=== PATIENT | male | born 1985 | race Caucasian/White ===

== ENCOUNTER 2019-10-24 01:49 | Observation (INO) ==
[2019-10-24 02:48] LABS: Basophils # (auto) 0.02 K/uL (0-0.2); Basophils % (auto) 0.3 %; Eosinophils # (auto) 0.24 K/uL (0-0.5); Eosinophils % (auto) 3.4 %; Hematocrit (blood only) 40.1 % (42-52); Hemoglobin 13.4 g/dL (14.0-18.0); Immature Granulocytes # (auto) 0.01 K/uL (0.00-0.02); Immature Granulocytes % (auto) 0.1 %; Lymphocytes # (auto) 1.36 K/uL (1.2-3.4); Lymphocytes % (auto) 19.4 %; Mean Corpuscular Hemoglobin 31.1 pg (25-34); Mean Corpuscular Hgb Conc 33.4 g/dL (32-36); Mean Platelet Volume 9.9 fL (7.4-10.4); Monocytes # (auto) 0.66 K/uL (0.11-0.59); Monocytes % (auto) 9.4 %; Neutrophils # (auto) 4.73 K/uL (1.4-6.5); Neutrophils % (auto) 67.4 %; Platelet Count 198 K/uL (130-400); RDW Coefficient of Variation 12.9 % (11.5-14.5); RDW Standard Deviation 44.2 fL (36.4-46.3); Red Blood Count 4.31 M/uL (4.7-6.1); White Blood Count 7.02 K/uL (4.8-10.8)
[2019-10-24 03:05] LABS: Albumin Level 3.9 gm/dl (3.4-5.0); BUN Creatinine Ratio 9.8 (10-20); Calcium 8.9 mg/dl (8.5-10.1); Creatinine Clr Calc Pharmacy 150.9 ml/min; Est GFR (African American) 109.3; Est GFR (Non-African American) 94.3
[2019-10-24 03:08] LABS: Bilirubin,Total 0.2 mg/dl (0.2-1); Globulin 3.8 gm/dl (2.5-4.0); Total Protein 7.7 gm/dl (6.4-8.2)
[2019-10-24] MEDS ORDERED: VANCOMYCIN CONSULT ACTIVE PRN ×2 (03:25→04:49)
[2019-10-24] MEDS ORDERED: VANCOMYCIN HCL 2,500 MG in SODIUM CHLORIDE 0.9% 500 ML IV ONE (03:25)
[2019-10-24] MEDS ORDERED: KETOROLAC 30 MG/ML VIAL IV ONE (03:35)
--- NOTE | 2019-10-24 04:35 | Emergency Department Note ---
Impression & Plan Cellulitis, Abscess of skin ED Provider Note NAME: OSVALDO FRANCIS AGE: 34 SEX: M ARRIVES VIA: Walk-In INFORMANT: Patient ED PROVIDER(S): Nathaly Pepper DO CHIEF COMPLAINT: Skin infection PLAN: [facility]: Stable MEDICAL DECISION MAKING: This is a 34-year-old male patient presents to the emergency department with a worsening skin infection. The patient has a negative lactate and no evidence of leukocytosis. The patient was afebrile. However, the patient is failing outpatient oral antibiotics and has a skin abscess with spreading cellulitis. The patient was started on IV vancomycin and the [facility] T[facility] Nursing notes reviewed and agree them. Prior medical records reviewed Vital Signs: reviewed and remarkable for hypertension Differential diagnosis: Skin abscess, cellulitis, sepsis, bacteremia ER treatment provided: IV Toradol IV vancomycin Laboratory studies: See below Consultation(s): None HPI: 34/M arrives for evaluation of right lower extremity skin abscess. This is a 34-year-old male patient who has been taking Bactrim and Keflex over the past 36 hours as prescribed by the PCP for what appeared to be an infected scratch. Unfortunately, there is significant erythema that has spread out from the circumscribed area with an ink pen. The area is warm to touch. The patient has no obvious edema to that right lower extremity. ROS: See above HPI for pertinent positives & negatives. A total of 10 systems reviewed and were otherwise negative. PAST MEDICAL HISTORY:See Below FAMILY HISTORY:See Below SOCIAL HISTORY:See Below HOME MEDICATIONS:See list ALLERGIES:See list VITALS:See Below PHYSICAL EXAMINATION: HEENT: Head - normocephalic and atraumatic Pupils are equal, round, and reactive to light. Extraocular eye muscles are intact, and sclera are anicteric. Nose - moist nasal mucosa without discharge. Mouth - moist buccal mucosa. Oropharynx is nonerythematous and there is no tonsillar exudate or edema noted. Neck: Supple; no JVD, nuchal rigidity, cervical lymphadenopathy Heart: Regular rate and rhythm. There is a normal S1 and S2 with no murmurs, clicks, or gallops appreciated. Lungs: Clear to auscultation bilaterally with no wheezes, rales, or rhonchi. Abdomen: Soft, completely nontender, nondistended, with good bowel sounds. There are no palpable pulsatile masses or hepatosplenomegaly. There is no guarding, rigidity, or rebound noted. Extremities: Right leg: There is an area of skin abscess just proximal to the knee but does not seem to be fluctuant. There is expanding erythema surrounding this wound that spreads proximal almost to the groin. The patient had used an ink pen to [place] the area of erythema on Friday and this has spread far outside of that area of demarcation. Skin: warm and dry with good turgor and no rashes. ED COURSE: Times/Reassessments: 0200: The patient was evaluated in room C 11. A complete history and physical was performed. Laboratory studies were drawn as above including a lactate and blood cultures. I did contact the lab to see if I could get any further identification of the staph species or sensitivities. This was not available. An IV lock was initiated and labs were drawn as above. I reviewed the results of the laboratory studies with the patient. The patient was started on IV vancomycin. I discussed the case with the [facility] hospitalist and they will evaluate for further inpatient management. Nathaly Pepper DO Past Med/Surg History Medical History (Updated 10/24/19 @ 07:07 by Nathaly Pepper DO) Depression Hypertension Family History Mother Hypertension Social History Smoking Status: Never smoker Hx Alcohol Use: Yes Alcohol type: beer, wine and hard liquor Hx Substance Use: No Preferred Language: Kinyarwanda Communication Ability: Effective Relationship Counselor Required: No Beliefs That Will Affect Care: None marital status: Current Living Situation: Family current occupational status: employed and unemployed Other Information That Helps Us Care for You: No Feels Safe at Home: Yes Safety Concerns: Feels Safe At This Time Allergies Allergies Allergy/AdvReac Type Severity Reaction Status Date / Time codeine AdvReac Mild NAUSEA/VOMI Unverified 10/24/19 02:33 TING Home Meds Home Medications Medication Instructions Recorded Confirmed lisinopril 10 mg tablet 10 mg PO DAILY 11/17/18 10/24/19 venlafaxine 150 mg 150 mg PO DAILY 11/17/18 10/24/19 capsule,extended release 24 hr amitriptyline 10 mg tablet 10 mg PO DAILY 02/01/19 10/24/19 cephalexin 500 mg PO QID 10/24/19 10/24/19 sulfamethoxazole-trimethoprim 1 tab PO Q12 10/24/19 10/24/19 Results & Data (ED) Vital Signs Vital Signs - 24 hr 10/24/19 01:53 10/24/19 02:19 10/24/19 02:32 Temperature 37.3 C Temperature Source Oral Pulse Rate 85 81 Respiratory Rate 16 23 Respiratory Depth Normal Blood Pressure 172/94 H 143/79 H Blood Pressure Mean 120 91 Blood Pressure Position Sitting Pulse Oximetry 100 Oxygen Delivery Method Room Air Room Air Sepsis Recent Fever Within 48 Hours No Sepsis New/Unexplained Change in Mental Status No Sepsis Action Taken by Nursing No Action Required 10/24/19 02:35 10/24/19 03:00 10/24/19 03:30 Temperature Temperature Source Pulse Rate 80 87 73 Respiratory Rate 26 H 23 21 Respiratory Depth Blood Pressure 158/98 H Blood Pressure Mean 113 Blood Pressure Position Pulse Oximetry Oxygen Delivery Method Sepsis Recent Fever Within 48 Hours Sepsis New/Unexplained Change in Mental Status Sepsis Action Taken by Nursing 10/24/19 04:00 10/24/19 05:34 Temperature Temperature Source Pulse Rate 66 68 Respiratory Rate 17 18 Respiratory Depth Blood Pressure 154/81 H 140/77 Blood Pressure Mean 97 Blood Pressure Position Pulse Oximetry 98 Oxygen Delivery Method Room Air Sepsis Recent Fever Within 48 Hours Sepsis New/Unexplained Change in Mental Status Sepsis Action Taken by Nursing Laboratory Data Result diagrams: 10/24/19 02:30 10/24/19 02:30 Lab Results 10/24/19 10/24/19 10/24/19 Range/Units 02:30 02:30 02:30 WBC 7.02 (4.8-10.8) K/uL RBC 4.31 L (4.7-6.1) M/uL Hgb 13.4 L (14.0-18.0) g/dL Hct 40.1 L (42-52) % MCV 93.0 (80-100) fL MCH 31.1 (25-34) pg MCHC 33.4 (32-36) g/dL RDW Std Deviation 44.2 (36.4-46.3) fL RDW Coeff of Eliza 12.9 (11.5-14.5) % Plt Count 198 (130-400) K/uL MPV 9.9 (7.4-10.4) fL Immature Gran % (Auto) 0.1 % Neut % (Auto) 67.4 % Lymph % (Auto) 19.4 % [place] % (Auto) 9.4 % Eos % (Auto) 3.4 % Baso % (Auto) 0.3 % Neut # (Auto) 4.73 (1.4-6.5) K/uL Lymph # (Auto) 1.36 (1.2-3.4) K/uL [place] # (Auto) 0.66 H (0.11-0.59) K/uL Eos # (Auto) 0.24 (0-0.5) K/uL Baso # (Auto) 0.02 (0-0.2) K/uL Immature Gran # (Auto) 0.01 (0.00-0.02) K/uL Absolute Nucleated RBC 0.00 (0-0) K/uL Nucleated RBC % (auto) 0.0 % Sodium 139 (136-145) mmol/L Potassium 4.0 (3.5-5.1) mmol/L Chloride 107 (98-107) mmol/L Carbon Dioxide 27 (21-32) mmol/L Anion Gap 5.0 (3-11) BUN 10 (7-18) mg/dl Creatinine 1.03 (0.6-1.4) mg/dl Est Cr Clr Drug Dosing 150.9 ml/min Est GFR ( Amer) 109.3 Est GFR (Non-Af Amer) 94.3 BUN/Creatinine Ratio 9.8 L (10-20) Glucose 95 (70-99) mg/dl Lactate 1.3 (0.4-2.0) mmol/L Calcium 8.9 (8.5-10.1) mg/dl Total Bilirubin 0.2 (0.2-1) mg/dl AST 33 (15-37) U/L ALT 75 (12-78) U/L Alkaline Phosphatase 75 (45-117) U/L Total Protein 7.7 (6.4-8.2) gm/dl Albumin 3.9 (3.4-5.0) gm/dl Globulin 3.8 (2.5-4.0) gm/dl Albumin/Globulin Ratio 1.0 (0.9-2) Anaplasma Smear See Comment Lyme Disease IgG Ab (Negative) Lyme Disease IgM Ab (Negative) 10/24/19 Range/Units 02:30 WBC (4.8-10.8) K/uL RBC (4.7-6.1) M/uL Hgb (14.0-18.0) g/dL Hct (42-52) % MCV (80-100) fL MCH (25-34) pg MCHC (32-36) g/dL RDW Std Deviation (36.4-46.3) fL RDW Coeff of Eliza (11.5-14.5) % Plt Count (130-400) K/uL MPV (7.4-10.4) fL Immature Gran % (Auto) % Neut % (Auto) % Lymph % (Auto) % [place] % (Auto) % Eos % (Auto) % Baso % (Auto) % Neut # (Auto) (1.4-6.5) K/uL Lymph # (Auto) (1.2-3.4) K/uL [place] # (Auto) (0.11-0.59) K/uL Eos # (Auto) (0-0.5) K/uL Baso # (Auto) (0-0.2) K/uL Immature Gran # (Auto) (0.00-0.02) K/uL Absolute Nucleated RBC (0-0) K/uL Nucleated RBC % (auto) % Sodium (136-145) mmol/L Potassium (3.5-5.1) mmol/L Chloride (98-107) mmol/L Carbon Dioxide (21-32) mmol/L Anion Gap (3-11) BUN (7-18) mg/dl Creatinine (0.6-1.4) mg/dl Est Cr Clr Drug Dosing ml/min Est GFR ( Amer) Est GFR (Non-Af Amer) BUN/Creatinine Ratio (10-20) Glucose (70-99) mg/dl Lactate (0.4-2.0) mmol/L Calcium (8.5-10.1) mg/dl Total Bilirubin (0.2-1) mg/dl AST (15-37) U/L ALT (12-78) U/L Alkaline Phosphatase (45-117) U/L Total Protein (6.4-8.2) gm/dl Albumin (3.4-5.0) gm/dl Globulin (2.5-4.0) gm/dl Albumin/Globulin Ratio (0.9-2) Anaplasma Smear Lyme Disease IgG Ab Negative (Negative) Lyme Disease IgM Ab Negative (Negative) Administered Medications Doxycycline Hyclate 100 mg/ (Dextrose) 110 mls @ 50 mls/hr IV Q12H GILBERT Stop: 10/31/19 04:59 Last Admin: 10/24/19 06:42 Dose: 50 mls/hr Documented by: [id number] Discontinued Medications Vancomycin HCl 2,500 mg/ (Sodium Chloride) 550 mls @ 200 mls/hr IV NOW ONE Stop: 10/24/19 06:09 Last Infusion: 10/24/19 06:48 Dose: 0 mls/hr Documented by: [id number] Admin: 10/24/19 03:39 Dose: 200 mls/hr Documented by: [id number] Ketorolac Tromethamine (Ketorolac 30 Mg/Ml Vial) 30 mg IV NOW ONE Stop: 10/24/19 03:36 Last Admin: 10/24/19 03:39 Dose: 30 mg Documented by: [id number] Discharge Plan Visit Data Chief Complaint: Skin Problem Stated Complaint: CELLULITIS R KNEE, WORSENING W/ ANTIBIOTICS ED Provider: Nathaly Pepper Discharge Problem: Cellulitis, Abscess of skin Patient Disposition: Admitted As Inpatient Discharge Instructions Interventions: ED Discharge Assessment Last Done: 10/24/19 05:34 Discharge Problem: Cellulitis Qualifiers: Site of cellulitis: extremity Site of cellulitis of extremity: lower extremity Laterality: right Qualified Code(s): L03.115 - Cellulitis of right lower limb Abscess of skin Qualifiers: Site of cutaneous abscess: extremity Site of cutaneous abscess of extremity: lower extremity Laterality: right Qualified Code(s): L02.415 - Cutaneous abscess of right lower limb
--- NOTE | 2019-10-24 04:51 | History & Physical Report ---
Date of Service October 24, 2019 Assessment & Plan (1) Cellulitis and abscess of right lower extremity: Cellulitis and abscess of right lower extremity without foot/presumed bug bite- Hold Keflex and Bactrim that were used as outpatient as a failure. Continue vancomycin IV begun in the ED. Add doxycycline 100 mg IV every 12 hours Lyme test, anaplasmosis DNA test and anaplasmosis smear. Present on Admission?: Yes (2) Bug bite with infection: See above Present on Admission?: Yes (3) Depression: Continue amitriptyline 10 mg daily and venlafaxine ER 150 mg daily Present on Admission?: Yes (4) Hypertension: Continue lisinopril 10 mg daily Present on Admission?: Yes History of Present Illness Chief Complaint: The patient presents to the emergency department with a worsening area of erythema and pain of right lower extremity despite treatment with 36 hours of Keflex and Bactrim DS Primary Care Provider: Sean Spears MD The patient is a 34-year-old male with a past medical history including hypertension and depression, who presents to the emergency department as above. He denies any associated systemic symptoms of fevers or chills, myalgias and arthralgias, brain fog or others. He is not aware of any direct insect bite. He is outdoors frequently. Allergies Allergy/AdvReac Type Severity Reaction Status Date / Time codeine AdvReac Mild NAUSEA/VOMI Unverified 10/24/19 02:33 TING Home Medications Home Medications Medication Instructions Recorded Confirmed Type lisinopril 10 mg tablet 10 mg PO DAILY 11/17/18 10/24/19 History venlafaxine 150 mg 150 mg PO DAILY 11/17/18 10/24/19 History capsule,extended release 24 hr amitriptyline 10 mg tablet 10 mg PO DAILY 02/01/19 10/24/19 History cephalexin 500 mg PO QID 10/24/19 10/24/19 History sulfamethoxazole-trimethoprim 1 tab PO Q12 10/24/19 10/24/19 History Past Med/Surg History Medical History (Updated 10/24/19 @ 05:15 by Lit Montez MD) Depression Hypertension Family History Mother Hypertension Social History Smoking Status: Never smoker Hx Alcohol Use: Yes marital status: current occupational status: employed and unemployed Feels Safe at Home: Yes Review of Systems Review of Systems: The patient denies chest pain, palpitations, shortness of breath, dyspnea on exertion, cough, sore throat, fevers, chills, sweats, weight change, fatigue, nausea, vomiting, diarrhea , constipation, abdominal pain, pelvic pain, blood in urine or stool, dysuria, urinary frequency or urgency, lightheadedness, dizziness, headache, memory loss, loss of consciousness, abnormal bruising or bleeding, imbalance, focal or generalized weakness, numbness or tingling in arms or left leg, generalized arthralgias or myalgias, back or neck pain, or night sweats. The review of systems is otherwise negative other than for that already noted above, and at least 10 systems have been reviewed. Physical Exam Physical Exam: The patient is awake, alert and oriented 3, well developed and well nourished, normocephalic and atraumatic, lying in bed and in no acute distress. HEENT--PERRL, EOMI, mucous membranes and oropharynx normal. Neck--supple. No JVD. No bruits. Thyroid normal, trachea midline, no adenopathy. Heart--normal S1 and S2. No murmurs, rubs or gallops. Lungs--clear bilaterally, no respiratory distress, no accessory muscle use. Abdomen--normal bowel sounds and soft. Nontender. Nondistended. Extremities--no cyanosis or clubbing. No edema. There are good distal pulses b/l. Dermatologic--right lower extremity with moderate erythema and warmth with central indurated area with single penetration wound. Neurologic--cranial nerves II through XII grossly intact. Rheumatologic--normal range of motion. Psychiatric--normal affect. Results & Data Results & Data ([facility]) Vital Signs (Past 12 Hours) Vital Signs Temp Pulse Resp BP Pulse Ox 10/24/19 04:00 66 17 154/81 H 10/24/19 03:30 73 21 10/24/19 03:00 87 23 158/98 H 10/24/19 02:35 80 26 H 10/24/19 02:32 81 23 143/79 H 10/24/19 01:53 99.1 F 85 16 172/94 H 100 Laboratory Results Laboratory Results WBC 7.02 K/uL (4.8-10.8) 10/24/19 02:30 RBC 4.31 M/uL (4.7-6.1) L 10/24/19 02:30 Hgb 13.4 g/dL (14.0-18.0) L 10/24/19 02:30 Hct 40.1 % (42-52) L 10/24/19 02:30 MCV 93.0 fL (80-100) 10/24/19 02:30 MCH 31.1 pg (25-34) 10/24/19 02:30 MCHC 33.4 g/dL (32-36) 10/24/19 02:30 RDW Std Deviation 44.2 fL (36.4-46.3) 10/24/19 02:30 RDW Coeff of Eliza 12.9 % (11.5-14.5) 10/24/19 02:30 Plt Count 198 K/uL (130-400) 10/24/19 02:30 MPV 9.9 fL (7.4-10.4) 10/24/19 02:30 Immature Gran % (Auto) 0.1 % 10/24/19 02:30 Neut % (Auto) 67.4 % 10/24/19 02:30 Lymph % (Auto) 19.4 % 10/24/19 02:30 [place] % (Auto) 9.4 % 10/24/19 02:30 Eos % (Auto) 3.4 % 10/24/19 02:30 Baso % (Auto) 0.3 % 10/24/19 02:30 Neut # (Auto) 4.73 K/uL (1.4-6.5) 10/24/19 02:30 Lymph # (Auto) 1.36 K/uL (1.2-3.4) 10/24/19 02:30 [place] # (Auto) 0.66 K/uL (0.11-0.59) H 10/24/19 02:30 Eos # (Auto) 0.24 K/uL (0-0.5) 10/24/19 02:30 Baso # (Auto) 0.02 K/uL (0-0.2) 10/24/19 02:30 Immature Gran # (Auto) 0.01 K/uL (0.00-0.02) 10/24/19 02:30 Sodium 139 mmol/L (136-145) 10/24/19 02:30 Potassium 4.0 mmol/L (3.5-5.1) 10/24/19 02:30 Chloride 107 mmol/L (98-107) 10/24/19 02:30 Carbon Dioxide 27 mmol/L (21-32) 10/24/19 02:30 Anion Gap 5.0 (3-11) 10/24/19 02:30 BUN 10 mg/dl (7-18) 10/24/19 02:30 Creatinine 1.03 mg/dl (0.6-1.4) 10/24/19 02:30 Est Cr Clr Drug Dosing 150.9 ml/min 10/24/19 02:30 Est GFR ( Amer) 109.3 10/24/19 02:30 Est GFR (Non-Af Amer) 94.3 10/24/19 02:30 BUN/Creatinine Ratio 9.8 (10-20) L 10/24/19 02:30 Glucose 95 mg/dl (70-99) 10/24/19 02:30 Lactate 1.3 mmol/L (0.4-2.0) 10/24/19 02:30 Calcium 8.9 mg/dl (8.5-10.1) 10/24/19 02:30 Total Bilirubin 0.2 mg/dl (0.2-1) 10/24/19 02:30 AST 33 U/L (15-37) 10/24/19 02:30 ALT 75 U/L (12-78) 10/24/19 02:30 Alkaline Phosphatase 75 U/L (45-117) 10/24/19 02:30 Total Protein 7.7 gm/dl (6.4-8.2) 10/24/19 02:30 Albumin 3.9 gm/dl (3.4-5.0) 10/24/19 02:30 Globulin 3.8 gm/dl (2.5-4.0) 10/24/19 02:30 Albumin/Globulin Ratio 1.0 (0.9-2) 10/24/19 02:30 Code Status & VTE Plan Code Status Full code VTE Prophylaxis Plan VTE Prophylaxis will be ordered: Yes PG Care Time/CCT Total # of Minutes Spent Total Time Spent with Patient: Total time spent is greater than 50% in coordination of care (as documented) at patient's floor/unit and/or counseling patient: Coding Level of Care Code 82293 Initial Inpt Care Lvl 2 Diagnoses Cellulitis and abscess of right lower extremity L03.115; L02.415 Bug bite with infection W57.XXXA Depression F32.9 Hypertension I10
[2019-10-24] MEDS ORDERED: ALUMINUM/MAGNESIUM SUSP 30 ML UDC PO PRN (05:51)
[2019-10-24] MEDS ORDERED: ONDANSETRON INJ 2 MG/ML 2 ML VIAL IV PRN (05:51)
[2019-10-24] MEDS ORDERED: MAGNESIUM HYDROXIDE SUSP 30 ML UDC PO PRN (05:51)
--- NOTE | 2019-10-24 05:59 | Pharmacy Report ---
Pharmacy Abx Dose Short Note - Date of Service October 24, 2019 - Assessment & Plan Assessment 34 year old M receiving vancomycin and doxycycline for treatment of skin infection Day # 1 of antimicrobial therapy. Plan Vancomycin * loading dose of vancomycin 2500 mg IV x 1 (19.6 mg/kg) was given in the ED. * population pharmacokinetics suggest a half life of 6.6 hr with an elimination constant of 0.104 hr-1 * start vancomycin 1750 mg IV q8 hours (13.7 mg/kg) * goal trough for skin infection ~15 mcg/min. * Trough ordered for prior to 0200 dose on 10/25/19 Pharmacy will continue to follow and will adjust dose/frequency as necessary. Thank you.
[2019-10-24] MEDS: DOXYCYCLINE HYCLATE 100 MG in DEXTROSE 5% 100 ML IV SCH ×2 (06:42→18:17)
[2019-10-24 07:00] LABS: Lyme Ab IgG w/WB Rflx Negative (Negative); Lyme Ab IgM w/WB Rflx Negative (Negative)
[2019-10-24] MEDS: VENLAFAXINE HCL XR 150 MG CAPXR PO SCH (08:42)
[2019-10-24] MEDS: lisinopriL 10 MG TAB PO SCH (08:42)
[2019-10-24] MEDS: VANCOMYCIN HCL 1,750 MG in SODIUM CHLORIDE 0.9% 500 ML IV SCH ×2 (09:55→17:41)
[2019-10-24] MEDS: ACETAMINOPHEN 325 MG TAB PO PRN ×2 (15:29→22:22)
[2019-10-24] MEDS ORDERED: AMITRIPTYLINE HCL 10 MG TAB PO SCH (21:00)
[2019-10-25] MEDS ORDERED: VANCOMYCIN TROUGH ONE (01:30)
[2019-10-25] MEDS: VANCOMYCIN HCL 1,750 MG in SODIUM CHLORIDE 0.9% 500 ML IV SCH ×2 (01:34→09:20)
--- NOTE | 2019-10-25 05:18 | Pharmacy Report ---
Pharmacy Abx Dose Short Note - Date of Service October 25, 2019 - Assessment & Plan Assessment 34 year old M receiving vancomycin/doxycycline for treatment of skin infection Day # 2 of antimicrobial therapy. Plan Vancomycin * Trough level of 12.5 mcg/mL is subtherapeutic but expect accumulation with patient's body habitus. * Continue dose of 1750 mg IV every 8 hours * Goal trough level for skin infection : ~15 mcg/mL * Trough ordered for: 10/26/19 prior to 1000 Pharmacy will continue to follow and will adjust dose/frequency as necessary. Thank you.
[2019-10-25] MEDS: DOXYCYCLINE HYCLATE 100 MG in DEXTROSE 5% 100 ML IV SCH (06:16)
--- NOTE | 2019-10-25 06:39 | Electrocardiogram Report ---
Test Reason : Blood Pressure : / mmHG Vent. Rate : 074 BPM Atrial Rate : 074 BPM P-R Int : 154 ms QRS Dur : 104 ms QT Int : 372 ms P-R-T Axes : 056 059 021 degrees QTc Int : 412 ms Normal sinus rhythm Normal ECG No previous ECGs available Confirmed by Wai Bueno ([id number]) on 10/25/2019 6:39:06 AM Referred By: REFERRED SELF Confirmed By:Wai Bueno
[2019-10-25] MEDS: lisinopriL 10 MG TAB PO SCH (08:14)
[2019-10-25] MEDS: VENLAFAXINE HCL XR 150 MG CAPXR PO SCH (08:15)
[2019-10-25] MEDS ORDERED: LIDOCAINE/EPINEPHRINE 1% 20 ML VIAL INFIL ONE (12:40)
--- NOTE | 2019-10-25 17:18 | Discharge Summary ---
Date of Service October 25, 2019 Admission HPI Per Admitting Provider The patient is a 34-year-old male with a past medical history including hypertension and depression, who presents to the emergency department as above. He denies any associated systemic symptoms of fevers or chills, myalgias and arthralgias, brain fog or others. He is not aware of any direct insect bite. He is outdoors frequently. Principal Diagnosis Right anterior thigh cellulitis with very small abscess status post bedside I&D Discharge Exam The patient appeared well Vital signs as documented. Lungs are clear to auscultation and appear unlabored Cardiac exam, Rhythm is regular.. No murmurs, rubs or gallops. Abdominal exam reveals normal bowel sounds, soft non tender, no masses Extremities are nonedematous and both pedal pulses are normal. Neurologic exam is alert and oriented, no focal loss of strength or sensation Skin is with receded erythema from the demarcated line. Attempted I&D only reve aled probably 2 ml of purulent material no pocket was found therefore this was not packed Psychologically is without concerns for anxiety or depression. Discharge Data Allergies Allergy/AdvReac Type Severity Reaction Status Date / Time codeine AdvReac Mild NAUSEA/VOMI Unverified 10/24/19 02:33 TING Consultations 10/24/19 04:25 ED Decision to Admit Stat 10/24/19 05:51 Consult Case Management - Discharge Planning Routine Hospital Course (1) Cellulitis and abscess of right lower extremity: Cellulitis and abscess of right lower extremity without foot Hold Keflex and Bactrim that were used as outpatient as a failure. Discharge on Doxycycline 100 mg IV every 12 hours for additional 7 days Lyme test, anaplasmosis negative this time. After verbal permission and the patient the area was anesthetized with 2 cc of Xylocaine and epinephrine. The small area of purulence was unroofed with sterile sharp scissor was revealed only 1 to 2 mL of purulent material. This was removed easily the wound was gently explored without source of deeper pocket or cystic formation or abscess formation. Therefore the wound was packed the wound was dressed with a clean dry dressing. Patient tolerated the procedure well (2) Depression: Continue amitriptyline 10 mg daily and venlafaxine ER 150 mg daily (3) Hypertension: Continue lisinopril 10 mg daily Total Time Total Time Spent Total Time Spent (In Minutes): It required greater than 30 minutes to prepare this patient for discharge Discharge Plan Discharge Items Patient Disposition: Home - Self-Care Reason For Visit: RLE CELLULITIS, BUG BITE Discharge Diagnosis: cellulitis( skin infection) small abscess, drained at bedside Activity: Resume your previous activity Activity Comment: avoid submersion bathing or swimming until healed Non-emergency contact: Primary Care Provider Call non-emergency contact if: you have any medication questions and your symptoms worsen Follow-up/Referrals: Sean Cantu MD [Primary Care Provider] - Diet: Regular Addtl Attending Provider Instructions: you have been diagnosed with a skin infection and small abscess. Wash the area daily with soap and water, more if the area becomes soiled or dirty. You may consider using antibiotic ointment and a small covering to try to keep the skin from closing over the small opening. Please complete your antibiotics and call Dr Gay Spears if you have any additional questions Pending Studies at Discharge: Yes Studies:: blood cultures will be continued to be watched they are negative to date Stand-Alone Forms: My [facility], Smoking Cessation Medications and DC Order Prescriptions: New doxycycline hyclate 100 mg capsule 100 mg PO BID 7 Days Qty: 14 RF: 0 Continued lisinopril 10 mg tablet 10 mg PO DAILY RF: 0 venlafaxine 150 mg capsule,extended release 24hr 150 mg PO DAILY RF: 0 amitriptyline 10 mg tablet 10 mg PO DAILY RF: 0 Discontinued sulfamethoxazole-trimethoprim 800-160 mg tablet 1 tab PO Q12 RF: 0 cephalexin 500 mg capsule 500 mg PO QID RF: 0 Discharge Orders: Discharge Order (Routine); Ordered 10/25/19 Ordered By: Onur Cobb Admission Data Admit Date/Time: 10/24/19 05:47 Attending Provider: Onur Cobb Admit Provider: Lit Montez Primary Care Provider: Sean Cantu Other Providers: Lit Montez Other Interventions: Discharge Summary Assessment (RN) Last Done: 10/25/19 15:05 Coding Level of Care Code D/C Day Management >30 mins Diagnoses Cellulitis and abscess of right lower extremity L03.115; L02.415 Depression F32.9 Hypertension I10
[2019-10-26] MEDS ORDERED: VANCOMYCIN TROUGH ONE (09:30)
== END 2019-10-25 15:33 | disposition home or self-care (01) | DRG 603 ==
LOC: ED 01:49 → INTOOBSV 05:23 → 3E 05:34 → SUATTDRO 05:47 → 3E 05:47